=== PATIENT | female | born 1990 | race African-American/Black ===

== ENCOUNTER 2024-08-11 02:06 | Emergency (ER) | payer SELFPAY ==
[2024-08-11 02:10] VITALS: BMI 41.9
[2024-08-11 02:22] VITALS: TEMP 98.6
[2024-08-11 02:26] LABS: VENOUS BASE EXCESS 0.4 mmol/L (-2-2); VENOUS O2 SATURATION 64.8 % (70-80); VENOUS PCO2 33.6 mmHg (38-52); VENOUS PH 7.465 (7.310-7.410)
[2024-08-11 02:27] LABS: ABSOLUTE IMMATURE GRANULOCYTES 0.03 x10^3/uL (0.0-0.031); BASOPHILS # 0.05 x10^3/uL (0.01-0.08); EOSINOPHIL % 1.7 % (0.7-5.8); EOSINOPHILS # 0.18 x10^3/uL (0.04-0.36); HEMATOCRIT 35.2 % (34.1-44.9); MCHC 31.3 g/dl (32.2-35.5); MEAN PLT VOLUME 9.9 fl (9.4-12.3); MONOCYTE # 0.76 x10^3/uL (0.24-0.86); PLATELET COUNT 334 x10^3/uL (182-369)
[2024-08-11 02:41] LABS: INR 1.1 (0.83-1.09)
[2024-08-11 02:43] LABS: ACTIVATED PTT 32.2 SECONDS (25.2-36.5)
[2024-08-11 02:45] LABS: POTASSIUM 3.7 mmol/L (3.5-5.1)
[2024-08-11 02:47] LABS: ALBUMIN 4.2 g/dl (3.4-5.0); BLOOD UREA NITROGEN 15.4 mg/dL (7-18); CALCIUM 9.7 mg/dL (8.5-10.1); MAGNESIUM 1.9 mg/dL (1.8-2.4)
[2024-08-11 02:50] LABS: CREATININE 0.8 mg/dL (0.55-1.3)
[2024-08-11 02:52] LABS: BILIRUBIN,TOTAL 0.4 mg/dL (0.2-1); TOT PROT 8.4 g/dl (6.4-8.2)
[2024-08-11 03:35] LABS: EPI CELLS 14 /uL (0-25.1); HYALINE CASTS 0 /uL (0-3.1); PH,URINE 5.5 (5.0-8.0); URINE APPEARANCE CLEAR; URINE BACTERIA 240 /uL (0-1359); URINE BILIRUBIN NEGATIVE (NEGATIVE); URINE COLOR YELLOW; URINE GLUCOSE (UA) NEGATIVE (NEGATIVE); URINE KETONE NEGATIVE (NEGATIVE); URINE LEUK ESTERASE NEGATIVE (NEGATIVE); URINE NITRITE NEGATIVE (NEGATIVE); URINE PROTEIN NEGATIVE (NEGATIVE); URINE RBC 6 /uL (0-23.9); URINE UROBILINOGEN 0.2 mg/dL (0.2-1.0); URINE WBC 17 /uL (0-25.8)
[2024-08-11 04:43] VITALS: RESP 16
[2024-08-11 07:02] VITALS: BP 122/72; PULSE 88
== END 2024-08-11 07:03 | disposition home or self-care (01) ==
LOC: JER 02:06
DX: R55 Syncope and collapse (principal)
CPT/HCPCS: 0241U-QW; 36415; 70450-TC; 71045-TC-FY; 74177-TC; 80053; 81003; 82803; 83735; 84484; 84703; 85025; 85610; 85730; 86850; 86900; 86901; 87086; 93005; 93010; 99285-25